=== PATIENT | female | born 1990 | race American Indian/Alaskan Native ===

== ENCOUNTER 2017-08-05 20:15 | Outpatient (CLI) | payer MEDICAID | END 2017-08-05 22:55 | disposition home or self-care (01) | LOC: TRG 20:15 | PROVIDERS: ATTEND Obstetrics & Gynecology | DX: O47.1 False labor at or after 37 completed weeks of gestation (principal); Z3A.39 39 weeks gestation of pregnancy ==

== ENCOUNTER 2017-08-09 20:31 | Outpatient (CLI) | payer MEDICAID ==
[2017-08-09 21:19] VITALS: BP 121/60
[2017-08-09] MEDS ORDERED: VISTARIL PO PRN (21:21)
== END 2017-08-09 21:40 | disposition home or self-care (01) ==
LOC: TRG 20:31
PROVIDERS: ATTEND Obstetrics & Gynecology
DX: O47.1 False labor at or after 37 completed weeks of gestation (principal); Z3A.39 39 weeks gestation of pregnancy
CPT/HCPCS: Q0177

== ENCOUNTER 2017-09-24 07:56 | Day surgery (SDC) | payer MEDICAID ==
--- NOTE | 2017-09-23 17:42 | History and Physical Report ---
History of Present Illness Date of examination: 09/17/17 History of present illness: Patient has been reassessed/reevaluated. H&P has been reviewed. No interval changes. This patient desires to discuss control methods and possibly start, continue, or change control. Patient desires sterilization.Discuss the permanency of sterilization. High risk of regret and 0.5 to 1% risk of failure. Discussed the different risk of abdominal versus vaginal approaches Patient desires laparoscopic tubal ligation . Vital Signs: Patient Profile: 26 Years Old Female Height: 66.0 inches (167.64 cm) Weight: 211 pounds (95.91 kg) BMI: 34.05 BSA: 2.05 PPast History : 3 Term Births: 2 Premature Births: 0 Living Children: 2 Para: 2 Mult. Births: 0 Prev : 0 Prev. attempt? 0 Aborta: 1 Elect. Ab: 1 Spont. 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 of genital herpes: no Hx of STD: chlamydia,GC Current Allergies (reviewed today): No known allergies Past Medical History: sti hx--GC/Ct 2008 Past Surgical History: rectal abcess I&D D&C: Family History Summary: General Comments - FH: Family History of Colon Cancer No Family History of Breast Cancer No Family History of Ovarvian Cancer Social History: Patient is single no etoh, no illicit drug use, no tobacco use Risk Factors: Smoked Tobacco Use: Current every day smoker Smokeless Tobacco Use: Never Passive smoke exposure: no Drug use: no HIV high-risk behavior: no Alcohol use: no Exercise: no Seatbelt use: 100 % Review of Systems General Denies fever, chills, sweats, anorexia, fatigue, weakness, malaise, weight loss and sleep disorder. Denies vaginal discharge, incontinence, dysuria, hematuria, urinary frequency, amenorrhea, menorrhagia, abnormal vaginal bleeding, pelvic pain, genital sores, decreased libido, painful periods, painful sex, urinary urgency, hot flashes, vaginal dryness, vaginal itching and vaginal odor. CV Denies chest pains, palpitations, syncope, dyspnea on exertion, orthopnea, PND and peripheral edema. Resp Denies cough, dyspnea at rest, excessive sputum, hemoptysis, wheezing and pleurisy. GI Denies nausea, vomiting, diarrhea, constipation, change in bowel habits, abdominal pain, melena, hematochezia, jaundice, gas/bloating, indigestion/ heartburn, dysphagia and odynophagia. Breast Denies left breast lump, right breast lump, nipple discharge, bloody discharge from nipple, breast pain, abnormal mammogram and breast enlargement. Psych Denies depression, anxiety, irritability and mood swings. Past History Past Medical History: other (See HPI) Past Surgical History: Other (See HPI) Social history: other (See HPI) Family history: other (See HPI) Medications and Allergies Allergies Allergy/AdvReac Type Severity Reaction Status Date / Time No Known Allergies Allergy Verified 09/16/17 19:10 Home Medications Medication Instructions Recorded Confirmed Last Taken Type No Known Home Medications [No 09/16/17 09/16/17 Unknown History Reported Home Medications] Review of Systems Constitutional: other (See HPI) Exam - Physical Exam Narrative exam: HEENT: normocephalic, no lesions or deformities Chest: respiratory effort normal, clear to auscultation CV: regular, normal S1-S2, no murmur, no rub, no gallop Abdomen: normal bowel sounds; soft, nontender Musculoskeletal: grossly normal ROM in joints, no joint tenderness or muscle weakness Neuro: no gross anomalities Extremities: no discoloration or edema 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 No evidence of cystocele or rectocele. Cervix: normal appearance, no lesions, no discharge Uterus: normal size and position, midline, mobile Adnexae: no masses or tenderness Rectovaginal: exam defered Results - Labs CBC & Chem 7: 09/24/17 08:37 Assessment and Plan - Patient Problems (1) Encounter for sterilization Current Visit: Yes Status: Acute Plan to address problem: Discuss the risks of the surgery including infection, bleeding possibly heavy enough to require a blood transfusion, possible damage to adjacent organs. Discuss permanent nature of the procedure and the 1% failure rate. Discuss of possibility of laparotomy needed Patient understands and desires to proceed.
[~2017-09-24 07:56] MED LIST: DILAUDID ONE; DIPRIVAN 10 MG/ML IV ONE; MARCAINE 0.5% 30 ML INFILTRATI ONE
--- NOTE | 2017-09-24 08:22 | Anesthesia Consultation ---
Anesthesia Consult and Med Hx Date of service: 09/24/17 - Airway Anesthetic Teeth Evaluation: Chipped (front upper) ROM Head & Neck: Adequate Mental/Hyoid Distance: Adequate Mallampati Class: Class II Intubation Access Assessment: Probably Good - Pulmonary Exam CTA: Yes - Cardiac Exam Cardiac Exam: RRR - Pre-Operative Health Status ASA Pre-Surgery Classification: ASA2 Proposed Anesthetic Plan: General - Pulmonary Hx Smoking: Yes Hx Asthma: No - Cardiovascular System Hx Hypertension: No - Central Nervous System Hx Seizures: No Hx Back Pain: Yes (herniated disc) Hx Psychiatric Problems: Yes (anxiety depression) - Gastrointestinal Hx Gastroesophageal Reflux Disease: No - Endocrine Hx Renal Disease: No Hx Hypothyroidism: No Hx Hyperthyroidism: No - Hematic Hx Anemia: No Hx Sickle Cell Disease: No - Other Systems Hx Alcohol Use: No Hx Substance Use: No Hx Cancer: No Hx Obesity: Yes
--- NOTE | 2017-09-24 08:23 | Anesthesia Day of Surgery ---
Anesthesia Day of Surgery - Day of Surgery Patient Examined: Yes Patient H&P Reviewed: Yes Patient is NPO: Yes
[2017-09-24] MEDS ORDERED: PEPCID PO NR (08:24)
[2017-09-24] MEDS ORDERED: VERSED IV NR (08:24)
[2017-09-24] MEDS ORDERED: LACTATED RINGERS 1,000 ML IV SCH (08:24)
[2017-09-24 08:58] LABS: Basophils % (Auto) 0.5 % (0.0-1.8); Eosinophils # (Auto) 0.3 K/mm3 (0.0-0.4); Eosinophils % (Auto) 3.9 % (0.0-4.3); Hematocrit 45.4 % (30.3-42.9); Hemoglobin 14.8 gm/dl (10.1-14.3); Lymphocytes # (Auto) 1.8 K/mm3 (1.2-5.4); Lymphocytes % (Auto) 26.8 % (13.4-35.0); Mean Corpuscular HGB Conc 33 % (30-34); Mean Corpuscular Hemoglobin 29 pg (28-32); Mean Corpuscular Volume 87 fl (79-97); Monocytes # (Auto) 0.8 K/mm3 (0.0-0.8); Platelet Count 332 K/mm3 (140-440); Red Blood Count 5.22 M/mm3 (3.65-5.03); Red Cell Distribution Width 13.3 % (13.2-15.2)
[2017-09-24] MEDS ORDERED: ZEMURON IV ONE (08:59)
[2017-09-24] MEDS ORDERED: ROBINUL ONE ×2 (09:00)
[2017-09-24] MEDS ORDERED: XYLOCAINE MPF 2% ONE (09:00)
[2017-09-24] MEDS ORDERED: NEOSTIGMINE ONE (09:00)
[2017-09-24] MEDS ORDERED: SUBLIMAZE ONE (09:01)
[2017-09-24] MEDS ORDERED: VERSED ONE (09:31)
[2017-09-24] MEDS ORDERED: TORADOL ONE (09:44)
[2017-09-24] MEDS ORDERED: ZOFRAN ONE (09:55)
[2017-09-24] MEDS ORDERED: DECADRON ONE (09:55)
[2017-09-24] MEDS ORDERED: MARCAINE 0.5% INFILTRATI ONE (09:57)
[2017-09-24] MEDS ORDERED: NEO SYNEPHRINE/NS Syringe(OR USE) IV ONE (10:08)
--- NOTE | 2017-09-24 10:15 | Operative Report ---
Operative Report Operative Report: Pre-operative diagnosis: Patient desires permanent sterilization Post-operative diagnosis: Same Procedure name(s): Laparoscopic bilateral tubal ligation with Falope-Rings Surgeon: Duane Sandra MD Call Center Professional: JOHNATHAN Anesthesia: General endotracheal EBL: Minimal Complications: None Findings: Patient with uterus approximately 8-10 weeks in size with normal fallopian tubes bilaterally Specimen(s): None Patient was brought in the operating room. General anesthesia was induced without difficulty. She was placed in dorsal lithotomy position. Prepped and draped in usual sterile manner. Her urinary bladder with was emptied with a red rubber catheter. Speculum placed in her vagina and Sargis uterine manipulator was placed for uterine manipulation. Attention was then switched to the patient's abdomen. An infra-umbilical incision was made with a scalpel. This incision was spread with a hemostat. A 5 mm trocar was placed in this incision while lifting high the abdominal wall. Intra-abdominal presence was verified directly with the laparoscope. The patient was then insufflated to approximately 3 L of CO2 gas. The patient's findings as noted above. An accessory puncture was made suprapubically. The 8 mm trocar was placed through this incision under direct visualization with no evidence of internal organ damage. Each of the fallopian tube were identified by its fimbriated end. A portion approximately 1-2 cm from each cornua was grasped with the Falope ring applicator. Falope-Rings were placed without any difficulty bilaterally. At this time all instruments were removed. The patient was deinsufflated. The skin incisions were closed subcuticular with 4-0 Vicryl. Marcaine was given subcuticularly for postoperative pain relief. The patient tolerated procedure well. She was awakened in the operating room and accompanied to the recovery room in good condition.
--- NOTE | 2017-09-24 10:17 | Short Stay Summary ---
Short Stay Documentation Date of service: 09/24/17 - History H&P: dictated Past Medical History: other (See HPI) Past Surgical History: Other (See HPI) Social history: other (See HPI) - Allergies and Medications Current Medications: Allergies No Known Allergies Allergy (Verified 09/16/17 19:10) Home Medications Medication Instructions Recorded Confirmed Last Taken Type oxyCODONE /ACETAMINOPHEN [Percocet 1 - 2 tab PO Q4H PRN #30 tablet 09/24/17 Unknown Rx 5/325 mg] Active Medications Famotidine (Pepcid) 20 mg PO PREOP NR Stop: 09/24/17 23:59 Last Admin: 09/24/17 08:44 Dose: 20 mg Lactated Ringer's (Lactated Ringers) 1,000 mls @ 75 mls/hr IV DIRECT JUANA Last Admin: 09/24/17 08:43 Dose: 75 mls/hr Midazolam HCl (Versed) 2 mg IV PREOP NR Stop: 09/24/17 23:59 Last Admin: 09/24/17 08:44 Dose: 2 mg - Brief post op/procedure progress note Date of procedure: 09/24/17 (see dictated operative note) - Hospital course Hospital course: Patient was admitted underwent the above him procedure without any complications. Patient will be discharged with follow-up in office in 1-2 weeks for postop check. - Disposition Condition at discharge: Good Disposition: DC-01 TO HOME OR SELFCARE - Discharge Diagnoses (1) Encounter for sterilization Status: Acute Short Stay Discharge Plan Activity: advance as tolerated Diet: regular Wound: open to air Additional Instructions: Patient office for fever chills nausea vomiting or pain uncontrolled by pain relief. Follow up with: MIESHA BILLY MD [Primary Care Provider] - 7 Days Prescriptions: oxyCODONE /ACETAMINOPHEN [Percocet 5/325 mg] 1 - 2 tab PO Q4H PRN #30 tablet PRN Reason: Pain, Moderate
[2017-09-24] MEDS ORDERED: DILAUDID ONE (10:43)
[2017-09-24] MEDS: DILAUDID IV PRN ×2 (10:43→10:55)
[2017-09-24] MEDS ORDERED: MORPHINE IV PRN (10:58)
[2017-09-24] MEDS ORDERED: ZOFRAN IV PRN (10:58)
[2017-09-24] MEDS ORDERED: PERCOCET 5/325 PO PRN (10:58)
[2017-09-24 12:39] VITALS: BP 120/74
[2017-09-24] MEDS ORDERED: PERCOCET 5/325 PO ONE (13:00)
== END 2017-09-24 07:57 | disposition home or self-care (01) ==
LOC: OR 07:56
PROVIDERS: ATTEND Obstetrics & Gynecology
DX: Z30.2 Encounter for sterilization (principal); E66.9 Obesity, unspecified; F41.9 Anxiety disorder, unspecified; F32.9 Major depressive disorder, single episode, unspecified; F17.200 Nicotine dependence, unspecified, uncomplicated; Z79.899 Other long term (current) drug therapy; Z68.33 Body mass index [BMI] 33.0-33.9, adult
CPT/HCPCS: 36415; 58671; 81025; 85025; J1100; J1170; J1885; J2250; J2270; J2370; J2405; J2704; J2710; J3010; J7120